=== PATIENT | female | born 1985 | race Caucasian/White ===

== ENCOUNTER 2018-04-29 11:07 | Emergency (ER) | payer OTHER ==
[2018-04-29 11:24] VITALS: BP 129/71; PULSE 80; TEMP 99.4; BMI 29.2
--- NOTE | 2018-04-29 11:40 | PDOC ---
History of Present Illness - General Chief Complaint: Injury Stated Complaint: BITE IN NIPPLE WHILE NURSING Time Seen by Provider: 04/29/18 11:26 History Source: Patient Exam Limitations: No Limitations (R breast nipple fissure X 4 days) - History of Present Illness Associated Symptoms: denies: fever/chills Past History - Travel Traveled outside of the country in the last 30 days: No - Past Medical History Allergies/Adverse Reactions: Allergies Allergy/AdvReac Type Severity Reaction Status Date / Time No Known Allergies Allergy Verified 04/29/18 11:15 Home Medications: Ambulatory Orders Mupirocin Ointment [Bactroban 2% Ointment -] 1 applic TP BID 7 Days #30 gm 04/29 NK [No Known Home Medication] 04/29/18 COPD: No - Suicide/Smoking/Psychosocial Hx Smoking History: Never smoked Review of Systems - Review of Systems Constitutional: No: Chills, Fever Respiratory: No: Orthopnea (R nipple pain), Shortness of Breath Cardiac (ROS): No: Chest Pain *Physical Exam - Vital Signs Last Vital Signs Temp Pulse Resp BP Pulse Ox 99.4 F 80 18 129/71 98 04/29/18 11:11 04/29/18 11:11 04/29/18 11:11 04/29/18 11:11 04/29/18 11:11 - Physical Exam General Appearance: Yes: Nourished Respiratory/Chest: positive: Lungs Clear, Normal Breath Sounds Cardiovascular: positive: Regular Rhythm, Regular Rate, S1, S2 Neurologic: positive: rn faculty II-XII NML intact, Fully Oriented, Alert (R breast: + fissure noted in nipple with erythema, no active bleeding or redness in breast, no tenderness in entire breast or lymphadenompathy, no blood expressed from nipple, symmetrical breeast b/l) Moderate Sedation - Procedure Monitoring Vital Signs: Procedure Monitoring Vital Signs Temperature 99.4 F 04/29/18 11:11 Pulse Rate 80 04/29/18 11:11 Respiratory Rate 18 04/29/18 11:11 Blood Pressure 129/71 04/29/18 11:11 O2 Sat by Pulse Oximetry (%) 98 04/29/18 11:11 Medical Decision Making - Medical Decision Making 04/29/18 11:37 33y/o F with R nipple irritation after son bite her while nursing X 4 days ago, pt denies f/c she is still nursing. exam consistent with nipple fissure with erythema, no pus or warmth in breast bactroban sent to pharmacy reassessed to pump and avoid direct mouth contact for severval day until fissure heals s/s of worsening infections discussed with pt. *DC/Admit/Observation/Transfer Diagnosis at time of Disposition: Nipple fissure - Discharge Dispostion Disposition: HOME Condition at time of disposition: Stable Decision to Admit order: No - Prescriptions Prescriptions: Mupirocin Ointment [Bactroban 2% Ointment -] 1 applic TP BID 7 Days #30 gm - Referrals Referrals: ON STAFF,NOT [Primary Care Provider] - - Patient Instructions Printed Discharge Instructions: DI for Abrasion Additional Instructions: I discussed the physical exam findings, ancillary test results and final diagnoses with the patient. I answered all of the patient's questions. The patient was satisfied with the care received and felt comfortable with the discharge plan and treatment plan. The patient will call their primary care physician within 24 hours to arrange follow-up and will return to the Emergency Department with any new, persistant or worsening symptoms. - Post Discharge Activity
== END 2018-04-29 11:48 | disposition home or self-care (01) ==
LOC: JER 11:07 → JERFT 11:07
DX: N64.0 Fissure and fistula of nipple (principal)
CPT/HCPCS: 99281-25